=== PATIENT | male | born 1940 | race Caucasian/White ===

== ENCOUNTER 2017-01-11 13:33 | Emergency (ER) | payer OTHER, MEDICARE ==
[~2017-01-11] VITALS: Ht 170.2 cm; Wt 70.5 kg
[~2017-01-11 13:33] MED LIST: AMLOD/BENAZP1 CA2; AMLODIPINE5 MG PO; AMOXICILLIN/CL875 MG PO; ASPIRIN LOW81 M1 PO; AZULFIDINE500 MG; BENAZEPRIL20 M1 PO; CARVEDILOL25 MG PO; CARVEDILOL6.25 MG PO; CHLORTHALIDONE50 MG PO; DEMADEX10 MG; DOXYCYC MONO100 M2 PO; HYDROCHLOROT25 MG PO; IPRATROPIU0.5 MG/3 M IN; LANTUS100 MG/ML SC; LEVOTHYROXIN100 MC1 PO; LEVOTHYROXIN25 MC1; LISINOP/HCTZ1 TA1 PO; METFORMIN500 MG PO; MICRO-K10 ME1 PO; MIRALAX3350 N1; OMEPRAZOLE20 M1 PO; PREDNISONE10 MG PO; PRILOSEC20 MG; PRILOSEC20 MG/CAP PO; PROSCAR5 MG PO; SULFASALAZIN500 MG PO; ULTRAM50 M1 PO
[2017-01-11 15:23] LABS: HEMATOCRIT 39.1 % (39.0-50.0); HEMOGLOBIN 12.4 g/dl (14.0-18.0); IMMATURE GRANULOCYTES 0.6 % (0.0-1.0); MEAN CELL VOLUME 88.9 fL CALC (80.0-100.0); MEAN CORPUSCULAR HGB 28.2 pG CALC (26.0-32.0); MEAN CORPUSCULAR HGB CONC 31.7 g/L CALC (32.0-36.0); NEUT# 10.95 thou/uL (1.82-7.42); RED BLOOD COUNT 4.4 mill/uL (4.70-6.10); RED CELL DISTRI WIDTH 14.3 % (11.5-15.5)
[2017-01-11 15:48] LABS: BILIRUBIN, TOTAL 0.5 mg/dL (0.0-1.4); CALCIUM 9.7 mg/dL (8.4-10.2); CREATININE 1.4 mg/dL (0.7-1.3); POTASSIUM 3.5 mmol/l (3.5-5.1); TOTAL PROTEIN 7.3 g/dL (6.3-8.2)
[2017-01-11 17:25] VITALS: BP 170/71
[2017-01-11 18:19] LABS: URINE BILIRUBIN - DIPSTICK NEGATIVE (NEGATIVE); URINE BLOOD DIPSTICK LARGE (NEGATIVE); URINE CLARITY CLEAR; URINE COLOR YELLOW; URINE GLUCOSE - DIPSTICK NEGATIVE (NEGATIVE); URINE KETONE NEGATIVE (NEGATIVE); URINE LEUK ESTERASE NEGATIVE (Negative); URINE NITRITE - DIPSTICK NEGATIVE (Negative); URINE PROTEIN - DIPSTICK 100 mg/dL (NEG-TRACE); URINE UROBILINOGEN - DIPSTICK 0.2 E.U./dL (0.2)
[2017-01-11 18:23] LABS: URINE RBC TNTC RBC/hpf (0-5); URINE SQUAMOUS EPITHELIAL CELL FEW EPI/hpf (0-FEW)
== END 2017-01-11 17:11 | disposition short-term general hospital (02) | DRG 552 ==
LOC: ED 13:33
PROVIDERS: Emergency Medicine
DX: S12.600A Unspecified displaced fracture of seventh cervical vertebra, initial encounter for closed fracture (principal); S50.811A Abrasion of right forearm, initial encounter; S60.511A Abrasion of right hand, initial encounter; S40.012A Contusion of left shoulder, initial encounter; R07.89 Other chest pain; E11.9 Type 2 diabetes mellitus without complications; I10 Essential (primary) hypertension; I25.10 Atherosclerotic heart disease of native coronary artery without angina pectoris; M19.90 Unspecified osteoarthritis, unspecified site; V48.5XXA Car driver injured in noncollision transport accident in traffic accident, initial encounter

== ENCOUNTER 2018-11-29 10:29 | Inpatient (IN) | payer OTHER, MEDICARE ==
[~2018-11-29] VITALS: Ht 170.2 cm; Wt 63.0 kg
[~2018-11-29 10:29] MED LIST changes: +AMLODIPINE BESY10 MG PO; -LEVOTHYROXIN100 MC1 PO; +LEVOTHYROXIN125 MC1 PO
--- NOTE | 2018-11-29 10:35 | NUR ---
PT TO ROOM VIA WHEELCHAIR
--- NOTE | 2018-11-29 10:40 | NUR ---
O2 APPLIED AT 2L VIA NC FOR SATS 88-90 %
--- NOTE | 2018-11-29 11:15 | NUR ---
PT RESTING ON STERCTHER OCCASIONAL COUGH NOTED, NO OTHER S/S OF DISTRESS, VS STABLE AND AT BEDSIDE, PT HARD OF HEARING BUT ABLE TO COMMUNICATE WITH LOUD VOICE, CALL [facility] WITHIN REACH.
[2018-11-29 11:46] LABS: HEMATOCRIT 38.1 % (39.0-50.0); HEMOGLOBIN 11.7 g/dl (14.0-18.0); IMMATURE GRANULOCYTES 0.4 % (0.0-5.0); MEAN CORPUSCULAR HGB 29.8 pG CALC (26.0-32.0); MEAN CORPUSCULAR HGB CONC 30.7 g/L CALC (32.0-36.0); NEUT# 7.07 thou/uL (1.82-7.42); RED BLOOD COUNT 3.92 mill/uL (4.70-6.10); RED CELL DISTRI WIDTH 14.5 % (11.5-15.5)
[2018-11-29 11:47] LABS: MEAN CELL VOLUME 97.2 fL CALC (80.0-100.0)
[2018-11-29 12:01] LABS: ALBUMIN 4.2 g/dL (3.2-5.0); ALKALINE PHOSPHATASE 89 u/l (38-126); BILIRUBIN, TOTAL 0.4 mg/dL (0.0-1.4); BUN 20 mg/dL (8-23); BUN/CREATININE RATIO 16 (12-20 (CALC)); CARBON DIOXIDE 30 mmol/l (22-30); CHLORIDE 101 mmol/l (95-108); CREATININE 1.2 mg/dL (0.7-1.3); GFR 59 ML/MIN (>=60 (CALC)); GFR FOR AFR.AMER. > 60 ML/MIN (>=60 (CALC)); SODIUM 142 mmol/l (137-146); TOTAL PROTEIN 7.6 g/dL (6.3-8.2)
[2018-11-29 12:04] LABS: ANION GAP 16 (6-22 (CALC)); POTASSIUM 4.6 mmol/l (3.5-5.1); SGOT/AST 20 u/l (19-48)
[2018-11-29 12:09] LABS: MYOGLOBIN 72 ng/mL (0 - 121)
--- NOTE | 2018-11-29 12:15 | NUR ---
PT RESTING IV STARTED LAB WORK OBTAINED AND PT AWARE OF PLANNED ADMISSION, TOLERATING IV ABT W/O INCIDENT, REMAINS AT BEDSIDE AND CALL [facility] WITHIN REACH
--- NOTE | 2018-11-29 13:10 | NUR ---
PT RESTING ON STERCTHER, REMAINS AT BEDSIDE TOLERATING O2 AT 2L WITH SATS MAINTAINED IN THE 96-98% RANGE, ON ROOM AIR AT ARRIVAL SATS 88-90% WITH NO APPARENT DISTRESS.
--- NOTE | 2018-11-29 13:32 | NUR ---
PT CAME FROM OR VIA BED. REPORT RECEIVED. PT IS ALERT. O2 AT 2L VIA. IVF INFUSING WELL. LEFT ARM IN SLING AND ICE PACK IN PLACE. CALL LIGHT IN REACH.
[2018-11-29] MEDS ORDERED: BENAZEPRIL40 M1 PO (13:38)
[2018-11-29] MEDS ORDERED: CHLORTHALID50 MG PO (13:39)
[2018-11-29] MEDS ORDERED: SPIRONOLACTONE25 MG PO (13:39)
[2018-11-29] MEDS ORDERED: FERR SULFATE325 MG PO (13:39)
[2018-11-29] MEDS ORDERED: MULTI VIT PO (13:40)
--- NOTE | 2018-11-29 14:15 | NUR ---
PT RESTING ON STRETCHER, OFFERS NO NEW COMPLAITNS, REMAINS AT BEDSIDE
--- NOTE | 2018-11-29 14:50 | NUR ---
ORDERED LUNCH FOR PT RELATED TO C/O HUNGRY,
--- NOTE | 2018-11-29 15:27 | NUR ---
REPORT CALLED TO AARON DAVENPORT ON MED SURG.
[2018-11-29 15:47] VITALS: BP 153/67
--- NOTE | 2018-11-29 15:50 | NUR ---
PT TRASNPORTED TO MED SURG VIA WHEELCHAIR, AT SIDE AND ALL BELONGINGS WITH PT. WEIGHT OBTAINED OPN STANDING SCALE ON ARRIVAL 67.2 KG
--- NOTE | 2018-11-29 17:02 | NUR ---
PT HAD COME FROM ER VIA WHEELCHAIR. ASSESSMENT DONE. PT IS A&O X3 BUT FORGETFUL AT TIMES. PT IS HARD OF HEARING. PT DENIES PAIN. 20 RAC THAT APPEARS HEALTHY. SKIN INTACT. SAFETY PRECAUTIONS REINFORCED AND CALL LIGHT IN REACH.
--- NOTE | 2018-11-29 19:50 | NUR ---
PT AWAKE RESTING IN BED. O2 N/C ON AT 2L. PT IS ALERT AND ORIENTED X3. RESP EVEN AND UNLABORED. LUNGS REVEAL COARSE BREATH SOUNDS. ABD SOFT WITH BOWEL SOUNDS PRESENT. NO LOWER EXT EDEMA NOTED. PEDAL PULSES PALPATED BILAT. HEPLOCK PATENT. PT OFFERS NO COMPLAINTS. CALL [facility] WITHIN REACH.
[2018-11-29 19:55] VITALS: BP 149/79
--- NOTE | 2018-11-30 00:10 | NUR ---
RESTING IN BED. RESP EVEN AND UNLABORED. NO DISTRESS NOTED. O2 N/C ON AT 2L. HEPLOCK PATENT. OFFERS NO COMPLAINTS. FREQUENT ROUNDS MADE. CALL [facility] WITHIN REACH.
--- NOTE | 2018-11-30 04:02 | NUR ---
RESTING IN BED WITH EYES CLOSED. ASSESSMENT UNCHANGED. RESP EVEN AND UNLABORED. HEPLOCK PATENT. FREQUENT ROUNDS MADE. CALL [facility] WITHIN REACH.
[2018-11-30 04:32] VITALS: BP 124/73
[2018-11-30 05:06] LABS: HEMOGLOBIN 10.7 g/dl (14.0-18.0); MEAN CELL VOLUME 98.3 fL CALC (80.0-100.0); MEAN CORPUSCULAR HGB 30.1 pG CALC (26.0-32.0); MEAN CORPUSCULAR HGB CONC 30.6 g/L CALC (32.0-36.0); RED BLOOD COUNT 3.56 mill/uL (4.70-6.10); RED CELL DISTRI WIDTH 14.3 % (11.5-15.5)
[2018-11-30 05:25] LABS: ANION GAP 14 (6-22 (CALC)); BUN 21 mg/dL (8-23); BUN/CREATININE RATIO 20 (12-20 (CALC)); CARBON DIOXIDE 29 mmol/l (22-30); CHLORIDE 102 mmol/l (95-108); CREATININE 1.1 mg/dL (0.7-1.3); GFR > 60 ML/MIN (>=60 (CALC)); GFR FOR AFR.AMER. > 60 ML/MIN (>=60 (CALC)); POTASSIUM 4.5 mmol/l (3.5-5.1); SODIUM 140 mmol/l (137-146)
[2018-11-30 07:33] VITALS: BP 143/69
--- NOTE | 2018-11-30 08:01 | NUR ---
ASSESSMENT DONE. PT IS A&O X3. PT IS HARD OF HEARING. PT DENIES PAIN AT THIS TIME. 02 AT 2L VIA NC. PT DENIES NEEDS AT THIS TIME. CALL LIGHT IN REACH.
--- NOTE | 2018-11-30 12:05 | NUR ---
PT IS EATING HIS LUNCH WITH NO S/S OF DISTRESS NOTED. PT DENIES ANY NEEDS AT THIS TIME. CALL LIGHT IN REACH.
--- NOTE | 2018-11-30 14:24 | NUR ---
PT STATED IV SITE HURTING DUE ZITHROMAX. ALSO, FELT TINGLING IN ARM. NO REDNESS OR WARM NOTED. SLOW THE IV. PT DENIES ANY OTHER NEEDS AT THIS TIME. CALL LIGHT IN REACH.
[2018-11-30 15:10] VITALS: BP 118/63
--- NOTE | 2018-11-30 15:20 | NUR ---
PT IS RESTING IN BED. PT DENIES PAIN IN RIGHT ARM AND DENIES TINGLING . PT DENIES NEEDS AT THIS TIME. CALL LIGHT IN REACH.
--- NOTE | 2018-11-30 19:25 | NUR ---
PT IN BED AWAKE, [place], BUT LOCX3. PT DENIES ANY NEEDS AT THIS TIME. CALL LIGHT AT SIDE.
[2018-11-30 20:30] VITALS: BP 148/72
--- NOTE | 2018-11-30 21:53 | NUR ---
PT MEDICATED ORDERS PROVIDE. DENIES ANY OTHER NEEDS AT THIS TIME. CALL LIGHT AT SIDE.
[2018-12-01 04:49] VITALS: BP 138/67
--- NOTE | 2018-12-01 07:00 | NUR ---
SHIFT CHANGE REPORT, PT AWAKE ALERT AND ORIENTED RESTING IN BED, O2 @ 2L VIA NC IN PLACE, ALL NEEDS ADDRESSED, CALL [facility] IN REACH.
[2018-12-01 09:08] VITALS: BP 178/79
--- NOTE | 2018-12-01 09:32 | NUR ---
DR HAINES ROUNDED, DISCUSSED PLAN OF CARE TO HAVE MORE IMAGING TESTS AND MEDICATIONS, ALSO O2 WALKING TEST WHICH PT FAILED WHEN HE AMBULATED FROM BR WITH O2 LEVEL @ 83%. PT STATED UNDERSTANDING OF PLAN.
--- NOTE | 2018-12-01 12:00 | NUR ---
DOWN FOR CT AND RETURNED TO ROOM, SPOSE AT BEDSIDE, ALL NEEDS MET.
--- NOTE | 2018-12-01 16:00 | NUR ---
SLEEPING AT THIS TIME, APPEARS CONFORTABLE, NO SIGN DISCOMFORT, O2 @ 2L VIA NC IN PLACE.
[2018-12-01 16:24] VITALS: BP 148/67
[2018-12-01 18:51] VITALS: BP 149/74
--- NOTE | 2018-12-01 19:42 | NUR ---
PATIENT RESTING IN BED WITH O2 VIA NASAL CANNULA IN PLACE AT 2LPM. PATIENT IS AWAKE ALERT AND ORIENTEDX3. YANKTON. SALINE LOCK TO RIGHT AC INTACT AND IS HEALTHY AT THIS TIME. PATIENT DENIES ANY PAIN AT THIS TIME. SENIES ANY DIFFICULTY WITH URINATION AND STATES THAT HE HAD BM TODAY. NO PERIPHERAL EDEMA NOTED AND PEDAL PULSES ARE PALPABLE. SAFETY PRECAUTIONS REINFORCED. CALL LIGHT IN REACH. WILL CONT TO MONITOR.
--- NOTE | 2018-12-02 | NUR ---
PATIENT RESTING IN BED AT THIS TIME WITH O2 VIA NASAL CANNUAL IN PLACE AND EYES CLOSED. RESP ARE EVEN AND UNLABORED AT THIS ITME. CALL LIGHT IN REACH. WILL CONT TO MONITOR.
[2018-12-02 04:00] VITALS: BP 140/66
--- NOTE | 2018-12-02 04:39 | NUR ---
PATIENT RESTING IN BED WITH HOB ELEVATED AND O2 VIA NASAL CANNULA IN PLACE. RESP ARE EVEN AND UNLABORED. CALL LIGHT IN REACH. WILL CONT TO MONITOR.
[2018-12-02 05:15] LABS: HEMATOCRIT 33.7 % (39.0-50.0); HEMOGLOBIN 10.5 g/dl (14.0-18.0); MEAN CORPUSCULAR HGB 29.9 pG CALC (26.0-32.0); MEAN CORPUSCULAR HGB CONC 31.2 g/L CALC (32.0-36.0); RED BLOOD COUNT 3.51 mill/uL (4.70-6.10); RED CELL DISTRI WIDTH 14.1 % (11.5-15.5)
[2018-12-02 05:27] LABS: ANION GAP 13 (6-22 (CALC)); BUN 23 mg/dL (8-23); BUN/CREATININE RATIO 21 (12-20 (CALC)); CARBON DIOXIDE 29 mmol/l (22-30); CHLORIDE 103 mmol/l (95-108); CREATININE 1.1 mg/dL (0.7-1.3); GFR > 60 ML/MIN (>=60 (CALC)); GFR FOR AFR.AMER. > 60 ML/MIN (>=60 (CALC)); POTASSIUM 4.8 mmol/l (3.5-5.1); SODIUM 140 mmol/l (137-146)
--- NOTE | 2018-12-02 06:55 | NUR ---
PT REPORT RECIEVED FROM AARON PATTERSON. PT RESTING. NO S/S OF DISTRESS. CALL LIGHT IN REACH. WILL CONTINUE TO MONITOR.
[2018-12-02 07:53] VITALS: BP 172/75
--- NOTE | 2018-12-02 07:53 | NUR ---
PT A/O X3. RESP SHALLOW. LUNG SOUNDS DIMINISHED. PRODUCTIVE COUGH NOTED; THICK YELLOW SPUTUM. O2 @2L AT BEDSIDE. BOWEL SOUNDS ACTIVE X4. STRONG RADIAL AND PEDAL PULSES. #20 RAC SL. FLUSHED AND PATENT. SITE APPEARS HEALTHY. SKIN INTACT. PT DENIES ANY PAIN OR NEEDS. POC DISCUSSED. SAFETY PRECAUTIONS IN PLACE. CALL LIGHT IN REACH. WILL CONTINUE TO MONITOR.
[2018-12-02 09:14] VITALS: BP 161/73
[2018-12-02] MEDS ORDERED: PREDNISONE10 MG PO (09:18)
[2018-12-02] MEDS ORDERED: LEVAQUIN750 MG PO (09:18)
--- NOTE | 2018-12-02 10:30 | NUR ---
WALK TEST COMPLETED ON PT. O2 W/O OXYGEN WHILE WALKING SUSTAINED 91%. PT DENIES ANY SOB. PT AMBULATES W/ STEADY GAIT.
--- NOTE | 2018-12-02 13:48 | NUR ---
Discharge instructions given. Patient verbalizes understanding of same. Discharged in stable condition via Wheelchair to Home with family. All belongings sent with pt.
== END 2018-12-02 13:48 | disposition home or self-care (01) | DRG 193 ==
LOC: ED 10:29 → ED-I 12:25 → ED 12:41 → MS2 12:42
PROVIDERS: Emergency Medicine; ADMIT Internal Medicine; ATTEND Internal Medicine
DX: J18.9 Pneumonia, unspecified organism (principal); J96.21 Acute and chronic respiratory failure with hypoxia; J44.0 Chronic obstructive pulmonary disease with (acute) lower respiratory infection; J44.1 Chronic obstructive pulmonary disease with (acute) exacerbation; I10 Essential (primary) hypertension; E11.9 Type 2 diabetes mellitus without complications; I25.10 Atherosclerotic heart disease of native coronary artery without angina pectoris; E03.9 Hypothyroidism, unspecified; K21.9 Gastro-esophageal reflux disease without esophagitis; Z87.891 Personal history of nicotine dependence
CPT/HCPCS: J1650

== ENCOUNTER 2019-06-05 | Emergency (ER) | payer MEDICARE, OTHER ==
[~2019-06-05] MED LIST changes: +BENAZEPRIL40 M1 PO; +CHLORTHALID50 MG PO; +FERR SULFATE325 MG PO; +LEVAQUIN750 MG PO; +MULTI VIT PO; +SPIRONOLACTONE25 MG PO
[2019-06-05 16:41] LABS: HEMATOCRIT 36.1 % (39.0-50.0); IMMATURE GRANULOCYTES 0.3 % (0.0-5.0); MEAN CORPUSCULAR HGB 27.4 pG CALC (26.0-32.0); MEAN CORPUSCULAR HGB CONC 30.5 g/dL CAL (32.0-36.0); NEUT# 3.93 thou/uL (1.82-7.42); RED BLOOD COUNT 4.01 mill/uL (4.70-6.10); RED CELL DISTRI WIDTH 15.9 % (11.5-15.5)
[2019-06-05] MEDS ORDERED: LUTEIN1 CAP PO (16:50)
[2019-06-05 17:16] LABS: ALBUMIN 3.8 g/dL (3.2-5.0); ALKALINE PHOSPHATASE 80 u/l (38-126); ANION GAP 13 (6-22 (CALC)); BILIRUBIN, TOTAL 0.3 mg/dL (0.0-1.4); BUN 33 mg/dL (8-23); BUN/CREATININE RATIO 26 (12-20 (CALC)); CARBON DIOXIDE 25 mmol/l (22-30); CHLORIDE 105 mmol/l (95-108); CREATININE 1.3 mg/dL (0.7-1.3); GFR 54 ML/MIN (>=60 (CALC)); GFR FOR AFR.AMER. > 60 ML/MIN (>=60 (CALC)); POTASSIUM 4.2 mmol/l (3.5-5.1); SGOT/AST 17 u/l (19-48); SODIUM 139 mmol/l (137-146)
== END 2019-06-05 18:16 | disposition home or self-care (01) | DRG 93 ==
PROVIDERS: Family Medicine
DX: R20.2 Paresthesia of skin (principal); E11.9 Type 2 diabetes mellitus without complications; I25.10 Atherosclerotic heart disease of native coronary artery without angina pectoris; I10 Essential (primary) hypertension

== ENCOUNTER 2020-02-28 07:49 | Emergency (ER) | payer OTHER, MEDICARE ==
[~2020-02-28] VITALS: Ht 170.2 cm; Wt 70.5 kg
[~2020-02-28 07:49] MED LIST changes: +LUTEIN1 CAP PO
[2020-02-28] MEDS ORDERED: CARVEDILOL25 MG PO (08:03)
[2020-02-28] MEDS ORDERED: AMLOD/BENAZP1 CA5 PO (08:04)
[2020-02-28] MEDS ORDERED: ALDACTAZID1 PO (08:05)
[2020-02-28] MEDS ORDERED: SULFASALAZIN500 M1 PO (08:07)
[2020-02-28] MEDS ORDERED: FINASTERIDE5 MG PO (08:08)
[2020-02-28] MEDS ORDERED: ADLT ASA LOW81 MG PO (08:08)
[2020-02-28] MEDS ORDERED: PREDNISONE5 MG PO ×2 (08:15→08:16)
[2020-02-28] MEDS ORDERED: FERR SULFATE325 MG PO (08:16)
[2020-02-28] MEDS ORDERED: LEVOTHYROXIN125 MCG PO (08:16)
[2020-02-28] MEDS ORDERED: PRESERVISION PO (08:17)
[2020-02-28] MEDS ORDERED: FIBER DIET (08:17)
[2020-02-28] MEDS ORDERED: TORADOL PO ×2 (09:31→10:01)
[2020-02-28 09:43] VITALS: BP 162/70
== END 2020-02-28 09:50 | disposition home or self-care (01) | DRG 563 ==
LOC: ED 07:49
DX: S46.912A Strain of unspecified muscle, fascia and tendon at shoulder and upper arm level, left arm, initial encounter (principal); S63.502A Unspecified sprain of left wrist, initial encounter; S63.92XA Sprain of unspecified part of left wrist and hand, initial encounter; I10 Essential (primary) hypertension; E11.9 Type 2 diabetes mellitus without complications; I25.10 Atherosclerotic heart disease of native coronary artery without angina pectoris; W01.0XXA Fall on same level from slipping, tripping and stumbling without subsequent striking against object, initial encounter; Y93.89 Activity, other specified; Y92.009 Unspecified place in unspecified non-institutional (private) residence as the place of occurrence of the external cause

== ENCOUNTER 2020-12-12 17:32 | Emergency (ER) | payer MEDICARE ==
[~2020-12-12 17:32] MED LIST changes: +ADLT ASA LOW81 MG PO; +ALDACTAZID1 PO; +AMLOD/BENAZP1 CA5 PO; +FIBER DIET; +FINASTERIDE5 MG PO; +LEVOTHYROXIN125 MCG PO; +PREDNISONE5 MG PO; +PRESERVISION PO; +SULFASALAZIN500 M1 PO; +TORADOL PO
== END 2020-12-12 19:07 | disposition left against medical advice (07) ==
LOC: ED 17:32 → LWOBS 19:07
DX: Z53.21 Procedure and treatment not carried out due to patient leaving prior to being seen by health care provider (principal)

== ENCOUNTER 2021-04-30 08:50 | Observation (INO) | payer MEDICARE ==
[~2021-04-30] VITALS: Ht 170.2 cm; Wt 68.0 kg
--- NOTE | 2021-04-30 09:01 | NUR ---
PT TO ROOM VIA WC ASSISTED W/TRANSFER TO [facility] [place].
[2021-04-30 10:02] LABS: HEMATOCRIT 38.5 % (39.0-50.0); HEMOGLOBIN 11.7 g/dl (14.0-18.0); IMMATURE GRANULOCYTES 0.4 % (0.0-5.0); MEAN CELL VOLUME 87.9 fL CALC (80.0-100.0); MEAN CORPUSCULAR HGB 26.7 pG CALC (26.0-32.0); MEAN CORPUSCULAR HGB CONC 30.4 g/dL CAL (32.0-36.0); NEUT# 9.66 thou/uL (1.82-7.42); RED BLOOD COUNT 4.38 mill/uL (4.70-6.10); RED CELL DISTRI WIDTH 16.2 % (11.5-15.5)
[2021-04-30 10:20] LABS: ALBUMIN 3.9 g/dL (3.2-5.0); ALKALINE PHOSPHATASE 88 u/l (38-126); ANION GAP 16 (6-22 (CALC)); BILIRUBIN, TOTAL 0.3 mg/dL (0.0-1.4); BUN 30 mg/dL (8-23); BUN/CREATININE RATIO 26 (12-20 (CALC)); CARBON DIOXIDE 27 mmol/l (22-30); CHLORIDE 102 mmol/l (95-108); CREATININE 1.1 mg/dL (0.7-1.3); GFR > 60 ML/MIN (>=60 (CALC)); GFR FOR AFR.AMER. > 60 ML/MIN (>=60 (CALC)); POTASSIUM 4.2 mmol/l (3.5-5.1); SGOT/AST 19 u/l (19-48); SODIUM 140 mmol/l (137-146); TOTAL PROTEIN 7.4 g/dL (6.3-8.2)
[2021-04-30 10:26] LABS: D-DIMER 1.54 mg/L (0.19-0.60)
[2021-04-30 10:28] LABS: PROTHROMBIN TIME 10.8 SECONDS (9.0-12.5)
--- NOTE | 2021-04-30 13:20 | NUR ---
PT RESTING, VSS, NO DISTRESS AND PAIN WELL MANAGED. DENIES ANY NEEDS.
[2021-04-30 13:21] LABS: URINE BILIRUBIN - DIPSTICK NEGATIVE (NEGATIVE); URINE BLOOD DIPSTICK TRACE-INTACT (NEGATIVE); URINE COLOR YELLOW; URINE GLUCOSE - DIPSTICK NEGATIVE (NEGATIVE); URINE KETONE NEGATIVE (NEGATIVE); URINE LEUK ESTERASE NEGATIVE (NEGATIVE); URINE PH 5.5 (4.5-8.0); URINE PROTEIN - DIPSTICK NEGATIVE (NEG-TRACE); URINE SPECIFIC GRAVITY 1.015; URINE UROBILINOGEN - DIPSTICK 0.2 E.U./dL (0.2)
[2021-04-30 13:36] LABS: URINE NITRITE - DIPSTICK NEGATIVE (Negative)
--- NOTE | 2021-04-30 14:19 | NUR ---
PT ASLEEP, AWAKENS TO VOICE. PT REPORTS PAIN IMPROVED AND "COMES AND GOES." RATES AT 3/10. BREATHING UNLABORED, VSS, SKIN PWD. WILL CONTINUE TO MONITOR.
--- NOTE | 2021-04-30 14:30 | NUR ---
PT TO BE ADMITTED TO ROOM 289, CALL PLACED TO GIVE REPORT, [facility] WILL CALL WHEN AVAILABLE TO TAKE REPORT.
--- NOTE | 2021-04-30 15:00 | NUR ---
PT RESTING WITH EYES CLOSED, VSS. AWAITING ADMISSION. PT STABLE.
[2021-04-30] MEDS ORDERED: FERROUS SULF325 M2 PO (15:23)
[2021-04-30] MEDS ORDERED: MECLIZINE12.5 M1 PO (15:24)
[2021-04-30] MEDS ORDERED: PRESERVISION AREDS 2 PO (15:25)
[2021-04-30] MEDS ORDERED: COUGHTAB200 MG PO (15:26)
[2021-04-30] MEDS ORDERED: CLARITIN10 M1 PO (15:29)
--- NOTE | 2021-04-30 15:43 | NUR ---
SBAR REPORT GIVEN TO [facility] MED/SURG
--- NOTE | 2021-04-30 15:50 | NUR ---
PT TAKEN TO MED/SURG VIA STRETCHER CONNECTED TO TELE. PT IN STABLE CONDITION AT TIME OF ADMISSION. PT'S PAPERWORK HANDED OFF TO STAFF.
--- NOTE | 2021-04-30 16:00 | NUR ---
PATIENT TO ROOM VIA ER STRETCHER ACCOMPANIED BY ER NURSE. PATIENT IS ALERT AND ORIENTED X3. ADMISSION ASSESSMENT COMPLETED AT THIS TIME. IV PATENT X1. ORIENTED PATIENT TO ROOM AND UNIT. [facility] WILL CONTINUE TO MONITOR.
[2021-04-30 19:00] VITALS: BP 138/60
--- NOTE | 2021-04-30 19:45 | NUR ---
PATIENT ALERT, VERY HARD OF HEARING. ATTEMPTS TO GET OUT OF BED BY HIMSELF TO WALK OVER TO SINK TO PUT HEARING AIDS IN EACH TIME TO COMMUNICATE WITH WHOEVER COMES IN THE ROOM. ASSESSMENT COMPLETE. SHORTNESS OF BREATH ON EXERTION. PRODUCTIVE COUGH PRESENT. SPUTUM OBSERVED IN CUP TO BE SENT TO LAB FOR CULTURE. SPUTUM APPEARS A BROWN COLOR. OXYGEN ON VIA NC AT 3L. BED REMAINS IN LOW POSITION. CALL LIGHT AND BELONGINGS REMAIN IN REACH.
--- NOTE | 2021-04-30 21:05 | NUR ---
CALLED RESPIRATORY TO COME ASSESS PATIENT AND BREATHING TREATMENT IF ORDERS ALLOW.
[2021-05-01] VITALS: BP 129/61
--- NOTE | 2021-05-01 01:00 | NUR ---
PATIENT RESTING IN BED. NO COMPLAINTS VOICED. NO DISTRESS NOTED AT THIS TIME. REMAINS ON O2 AT 4L NC. NO COUGHING OBSERVED AT THIS TIME. CALL LIGHT AND BELONGINGS REMAIN IN REACH.
--- NOTE | 2021-05-01 03:38 | NUR ---
CALLED RESPIRATORY FOR PRN BREATHING TX FOR PATIENT.
[2021-05-01 04:00] VITALS: BP 118/58
--- NOTE | 2021-05-01 04:15 | NUR ---
PATIENT RESTING IN BED. NO SHORTNESS OF BREATH OBSERVED AT THIS TIME. COMPLAINS AT TIMES OF PAIN TO RIGHT SIDE OF RIB/CHEST AREA SAME WHERE PAIN WAS ON ADMISSION. NO COMPLAINTS VOICED PRESENTLY. PATIENT KEEPS REMOVING HEARING AID FROM LEFT EAR AND PUTTING IT BACK IN EACH TIME SOMEONE ENTERS THE ROOM. CALL LIGHT AND BELONGINGS REMAIN IN REACH.
[2021-05-01 05:36] LABS: HEMATOCRIT 34.5 % (39.0-50.0); HEMOGLOBIN 10.4 g/dl (14.0-18.0); MEAN CELL VOLUME 88.2 fL CALC (80.0-100.0); MEAN CORPUSCULAR HGB 26.6 pG CALC (26.0-32.0); MEAN CORPUSCULAR HGB CONC 30.1 g/dL CAL (32.0-36.0); RED BLOOD COUNT 3.91 mill/uL (4.70-6.10); RED CELL DISTRI WIDTH 16.6 % (11.5-15.5)
[2021-05-01 06:03] LABS: CREATININE 1.5 mg/dL (0.7-1.3); POTASSIUM 4.2 mmol/l (3.5-5.1)
--- NOTE | 2021-05-01 07:05 | NUR ---
REPORT FROM PACO WALKER. ASSUMED PT CARE.
[2021-05-01 07:31] VITALS: BP 118/66
[2021-05-01 10:45] VITALS: BP 126/53
--- NOTE | 2021-05-01 11:21 | NUR ---
PHYSICIAN AT BEDSIDE.
[2021-05-01 15:44] VITALS: BP 129/61; BP 170/67
[2021-05-01 18:58] VITALS: BP 144/58
--- NOTE | 2021-05-01 20:00 | NUR ---
PATIENT RESTING IN BED AT THIS TIME-AWAKE ALERT AND ORIENTED. PATIENT VERY ROBIN[place] AND ALSO VISUALLY IMPAIRED. TELE MONITOR IN PLACE READING 95. IVF NS PATENT AND INFUSING VIA LAC AT 100CC/HR. SITE IS HEALTHY AT THIS TIME. O2 VIA NASAL CANNULA IN PLACE WITH O2 SAT OF 90'S. VOIDING QS MILEY URINE IN THE URINAL. SAFETY PRECAUTIONS REINFORCED. BED ALARM IN PLACE. CALL LIGHT IN REACH. WILL CONT TO MONITOR.
--- NOTE | 2021-05-02 | NUR ---
PATIENT MEDICATED WITH ROBITUSSIN AC ORDERED. RESTING IN BED AT THIS TIME WITH O2 VIA NASAL CANNULA IN PLACE. TELE MONITOR IN PLACE. IVF PATENT AND INFUSING VIA LAC SITE. BED ALARM IN PLACE. CALL LIGHT IN REACH. WILL CONT TO MONITOR.
[2021-05-02 01:19] VITALS: BP 157/60
[2021-05-02 04:52] VITALS: BP 157/73
--- NOTE | 2021-05-02 05:17 | NUR ---
PATIENT RESTING IN BED-C/O PAIN TO LAC IV SITE. SITE WAS D/C'ED WITH CATH INTACT. NEW IV SITE STARTED TO RIGHT FOREARM-#22 WITH GOOD BLOOD RETURN. IVF NS PATENT AND INFUSING AT 100CC/HR. O2 VIA NASAL CANNULA IN PLACE. TELE MONITOR IN PLACE-LAST READING WAS ST-105. BED ALARM IN PLACE FOR PATIENT SAFETY. CALL LIGHT IN REACH. WILL CONT TO MONITOR.
[2021-05-02 05:52] LABS: MEAN CORPUSCULAR HGB 26.7 pG CALC (26.0-32.0); MEAN CORPUSCULAR HGB CONC 30.3 g/dL CAL (32.0-36.0); RED BLOOD COUNT 3.75 mill/uL (4.70-6.10); RED CELL DISTRI WIDTH 16.2 % (11.5-15.5)
[2021-05-02 06:16] LABS: ANION GAP 13 (6-22 (CALC)); BUN 28 mg/dL (8-23); BUN/CREATININE RATIO 25 (12-20 (CALC)); CARBON DIOXIDE 23 mmol/l (22-30); CHLORIDE 105 mmol/l (95-108); CREATININE 1.1 mg/dL (0.7-1.3); GFR > 60 ML/MIN (>=60 (CALC)); GFR FOR AFR.AMER. > 60 ML/MIN (>=60 (CALC)); POTASSIUM 3.9 mmol/l (3.5-5.1); SODIUM 138 mmol/l (137-146)
[2021-05-02 07:10] VITALS: BP 149/68
--- NOTE | 2021-05-02 07:11 | NUR ---
REPORT REC FROM Tisha HORN RN
--- NOTE | 2021-05-02 08:10 | NUR ---
PT SITTING IN BED. A&O . COCHELAR IMPLANT APPLIED. PT [place]; THICK PRODUCTIVE COUGH NOTED. COARSE BREATH SOUNDS THROUGHOUT ALL LUNG BASES. ACTIVE BOWEL SOUNDS X4 QUADRANTS. IV HEALTHY AND PATENT WITH IVF INFUSING PER MAR ORDERS. PROGRAM SERVICES PLANNER IN PLACE. ASSESSMENT COMPLETED. BED ALARM IN PLACE FOR SAFETY.
[2021-05-02 08:51] LABS: URINE BILIRUBIN - DIPSTICK SMALL (NEGATIVE); URINE BLOOD DIPSTICK NEGATIVE (NEGATIVE); URINE GLUCOSE - DIPSTICK NEGATIVE (NEGATIVE); URINE KETONE TRACE mg/dL (NEGATIVE); URINE LEUK ESTERASE NEGATIVE (NEGATIVE); URINE NITRITE - DIPSTICK POSITIVE (Negative); URINE PROTEIN - DIPSTICK NEGATIVE (NEG-TRACE); URINE SPECIFIC GRAVITY <=1.005; URINE UROBILINOGEN - DIPSTICK 0.2 E.U./dL (0.2)
[2021-05-02 08:52] LABS: URINE BACTERIA FEW hpf; URINE COLOR BROWN; URINE RBC 0-2 RBC/hpf (0-5); URINE WBC 0-2 WBC/hpf (0-5)
--- NOTE | 2021-05-02 09:59 | NUR ---
6 MIN WALK TEST COMPLETED BY Roscoe VAZQUEZ. PT 84% VIA RA; FAILED WT. RESULTS COMMUNICATED WITH MD & CM. O2 REAPPLIED.
--- NOTE | 2021-05-02 10:07 | NUR ---
AT BEDSIDE; UPDATED ON POC
--- NOTE | 2021-05-02 10:16 | NUR ---
DR BHATT AND Wojciech GUZMÁN TILE AND MARBLE INSTALLER AT BEDSIDE DISCUSSING POC
[2021-05-02 11:12] VITALS: BP 144/64
--- NOTE | 2021-05-02 14:00 | NUR ---
PT CONFUSED; PER HE HAS DEMENTIA. Wojciech GUZMÁN APRN NOTIFIED OF INCREASED AGITATION AND CONFUSION; ORDER OBTAINED FOR SEROQUEL. PT ABLE TO TAKE PO MEDICATIONS WITH NO DIFFICULTY. WANTING TO SIT IN CHAIR. ALARM CLIP APPLIED. PT TO BE CLOSELY MONITORED.
--- NOTE | 2021-05-02 15:57 | NUR ---
PT SLEEPING IN BED. NO DISTRESS NOTED. CALL LIGHT WITHIN REACH. BED ALARM IN PLACE FOR SAFETY.
--- NOTE | 2021-05-02 19:30 | NUR ---
PATIENT RESTING IN BED WITH O2 VIA NASAL CANNULA IN PLACE AT 3LPM. O2 SAT IS 94% AT THIS TIME. EYES ARE CLOSED AND RESPS ARE EVEN AND UNLABORED. TELE MONITOR IN PLACE. IVF PATENT AND INFUSING VIA RIGHT FOREARM AT 50CC/HR. SITE REMAINS HEALTHY AT THIS TIME. BED ALARM IN PLACE. CALL LIGHT IN REACH. WILL CONT TO MONITOR.
[2021-05-02 20:12] VITALS: BP 132/61
[2021-05-03] VITALS (7 sets, daily range): BP systolic 129–177; BP diastolic 71–81
--- NOTE | 2021-05-03 01:27 | NUR ---
PATIENT CONT TO REST IN BED WITH EYES CLOSED AND O2 VIA NASAL CANNULA IN PLACE. RESPS ARE EVEN AND UNLABORED AT THIS TIME. PATIENT WOKE UP FOR SHORT TIME TOOK HIS PO MEDS ORDERED THEN WENT BACK TO SLEEP. TELE MONITOR IN PLACE WITH LAST READING BEING SR-78. IVF PATENT AND INFUSING VIA RIGHT FOREARM AT 50CC/HR. SITE REMAINS HEALTHY.ED ALARM IN PLACEFOR PATIENT SAFETY. SITTER AT BEDSIDE FOR PATIENT SAFETY. CALL LIGHT IN REACH. WILL CONT TO MONITOR.
--- NOTE | 2021-05-03 04:17 | NUR ---
PATIENT CONT TO SLEEP WITH O2 VIA NASAL CANNULA IN PLACE. RESPS ARE EVEN AND UNLABORED. VS TAKEN AND RECORDED. TELE MONITOR IN PLACE WITH LAST READING BEING SR-81. IVF NS PATENT AND INFUSING VIA RIGHT FOREARM SITE AT 50CC/HR. CALL LIGHT IN REACH. BED ALARM IN PLACE FOR PATIENT SAFETY. SITTER AT BEDSIDE. WILL CONT TO MONITOR.
[2021-05-03 06:15] LABS: HEMATOCRIT 36.2 % (39.0-50.0); HEMOGLOBIN 10.6 g/dl (14.0-18.0); MEAN CELL VOLUME 88.7 fL CALC (80.0-100.0); MEAN CORPUSCULAR HGB CONC 29.3 g/dL CAL (32.0-36.0); RED BLOOD COUNT 4.08 mill/uL (4.70-6.10); RED CELL DISTRI WIDTH 16.3 % (11.5-15.5)
[2021-05-03 06:20] LABS: ANION GAP 12 (6-22 (CALC)); BUN 22 mg/dL (8-23); BUN/CREATININE RATIO 23 (12-20 (CALC)); CARBON DIOXIDE 24 mmol/l (22-30); CHLORIDE 107 mmol/l (95-108); CREATININE 0.9 mg/dL (0.7-1.3); GFR > 60 ML/MIN (>=60 (CALC)); GFR FOR AFR.AMER. > 60 ML/MIN (>=60 (CALC)); MAGNESIUM 2.3 mg/dL (1.6-2.3); POTASSIUM 4.6 mmol/l (3.5-5.1); SODIUM 138 mmol/l (137-146)
--- NOTE | 2021-05-03 08:20 | NUR ---
PT SITTING ON THE SIDE OF THE BED EATING BREAKFAST. APPEARS CALM. A&O X3. COCHELAR IMPLANT IN PLACE; PT ABLE TO RESPOND TO QUESTIONS APPROPRIATELY. COARSE/DIMINISHED BREATH SOUNDS; IMPROVEMENT COMPARED TO YESTERDAY. ACTIVE BOWEL SOUNDS X4 QUADRANTS. IV REMAINS HEALTHY AND PATENT. HIDE SHAKER IN PLACE. PT ABLE TO TAKE PO MEDICATIONS WITHOUT DIFFICULTY. ASSESSMENT COMPLETED. DISCUSSED POC. BED ALARM IN PLACE FOR SAFETY. CALL LIGHT WITHIN REACH.
--- NOTE | 2021-05-03 17:10 | NUR ---
PT SITTING IN BED. NO DISTRESS NOTED. AT BEDSIDE. CALL LIGHT WITHIN REACH.
--- NOTE | 2021-05-03 17:20 | NUR ---
PT PROVIDED WITH HOT BLACK TEA PER REQUEST. NO OTHER NEEDS AT THIS TIME. CALL LIGHT WITHIN REACH.
--- NOTE | 2021-05-03 20:00 | NUR ---
PT IN BED; A&O X2. EVEN AND UNLABORED RESPIRATIONS; DIMINISHED LUNG SOUNDS UPON AUSCULTATION. O2 @ 2L VIA NASAL CANNULA IN PLACE. TELEMERY AND BED ALARM IN PLACE. ACTIVE BOWEL SOUNDS X4 QUADRANTS. INSTRUCTED PT TO USE CALL LIGHT AND LEFT WITHIN REACH.
--- NOTE | 2021-05-03 22:15 | NUR ---
PT IS RESTLESS; UNABLE TO SLEEP. DR HAINES NOTIFIED. RECEIVED ORDER FOR SLEEP MED FROM DR. HAINES.
[2021-05-04] VITALS: BP 151/77
--- NOTE | 2021-05-04 00:30 | NUR ---
PT SLEEPING. NO DISTRESS NOTED. TELEMETRY AND BED ALARM IN PLACE. CALL LIGHT WITHIN REACH.
[2021-05-04 04:00] VITALS: BP 151/72
--- NOTE | 2021-05-04 04:00 | NUR ---
BED ALARM BEEPING; PT TRYING TO GET OUT OF BED. PT HELPED TO RESTROOM. PT PULLED OUT IV; CATHETER IS INTACT. NEW IV SITE STARTED; PT TOLERATED WELL. #22G ON RIGHT FOREARM HEALTHY AND PATENT. BED ALARM AND SAFETY PRECAUTIONS IN PLACE. CALL LIGHT WITHIN REACH.
[2021-05-04 05:59] LABS: HEMATOCRIT 31.4 % (39.0-50.0); HEMOGLOBIN 9.4 g/dl (14.0-18.0); MEAN CORPUSCULAR HGB 26.6 pG CALC (26.0-32.0); MEAN CORPUSCULAR HGB CONC 29.9 g/dL CAL (32.0-36.0); RED BLOOD COUNT 3.53 mill/uL (4.70-6.10); RED CELL DISTRI WIDTH 16.5 % (11.5-15.5)
[2021-05-04 06:53] LABS: ANION GAP 10 (6-22 (CALC)); BUN 22 mg/dL (8-23); BUN/CREATININE RATIO 24 (12-20 (CALC)); CARBON DIOXIDE 25 mmol/l (22-30); CHLORIDE 107 mmol/l (95-108); CREATININE 0.9 mg/dL (0.7-1.3); GFR > 60 ML/MIN (>=60 (CALC)); GFR FOR AFR.AMER. > 60 ML/MIN (>=60 (CALC)); POTASSIUM 4.5 mmol/l (3.5-5.1); SODIUM 138 mmol/l (137-146)
--- NOTE | 2021-05-04 08:52 | NUR ---
PT SITTING IN BED. A&O X3. NO DISTRESS NOTED. O2 VIA NC @2L IN PLAC. COARSE BREATH SOUNDS IN UPPER LOBES/DIMINSHED LOWER LOBES HEARD UPON AUSCULTATION. ACTIVE BOWEL SOUNDS X4 QUADRANTS. IS DEVICE AT BEDSIDE; PT DEMONSTRATNG PROPER USE OF DEVICE. IV HEALTHY AND PATENT. ASSESSMENT COMPLETED. DISCUSSED POC. CALL LIGHT WITHIN REACH.
[2021-05-04 08:53] VITALS: BP 150/67
[2021-05-04 11:03] VITALS: BP 142/62
--- NOTE | 2021-05-04 11:56 | NUR ---
PT IN BED EATING LUNCH WITH AT BEDSIDE. NO NEEDS AT THIS TIME. CALL LIGHT WITHIN REACH.
[2021-05-04] MEDS ORDERED: VIBRAMYCIN100 M2 PO (13:08)
--- NOTE | 2021-05-04 15:08 | NUR ---
Discharge instructions given. Patient verbalizes understanding of same. Discharged in stable condition via Wheelchair to Home with staff. All belongings sent with pt. Home oxygen connected at 2L, educated on proper use. Pt encouraged to return if symptoms worsen.
--- NOTE | 2021-05-07 10:32 | NUR ---
Pneumonia post discharge follow up call completed today, 05/07/21. Per , pt is doing very well. He has had no fever, chills, or increased SOB.e is using his oxygen less with time and O2 levels are in 90s most of the time. Pt is regaining energy and stamina since discharge also. Follow up appt [facility] PCP is scheduled for . He is taking prescribed medication without difficulty. No needs or concerns expressed by at this time.
== END 2021-05-04 15:08 | disposition home health service (06) ==
LOC: ED 08:50 → MS2 13:24
PROVIDERS: Emergency Medicine; Nurse Practitioner; ADMIT Internal Medicine; ATTEND Internal Medicine
DX: J18.9 Pneumonia, unspecified organism (principal); J43.9 Emphysema, unspecified; N17.9 Acute kidney failure, unspecified; J96.11 Chronic respiratory failure with hypoxia; I10 Essential (primary) hypertension; E11.9 Type 2 diabetes mellitus without complications; I25.10 Atherosclerotic heart disease of native coronary artery without angina pectoris; E03.9 Hypothyroidism, unspecified; K21.9 Gastro-esophageal reflux disease without esophagitis; K50.90 Crohn's disease, unspecified, without complications; Z87.891 Personal history of nicotine dependence; Z20.822 Contact with and (suspected) exposure to COVID-19
CPT/HCPCS: J1650; Q9967

== ENCOUNTER 2022-04-10 07:19 | Observation (INO) | payer OTHER, MEDICARE ==
[2022-04-10] VITALS (30 sets, daily range): BP systolic 89–158; BP diastolic 38–112
[~2022-04-10] VITALS: Ht 170.2 cm; Wt 66.8 kg
[~2022-04-10 07:19] MED LIST changes: +CLARITIN10 M1 PO; +COUGHTAB200 MG PO; +FERROUS SULF325 M2 PO; +MECLIZINE12.5 M1 PO; +PRESERVISION AREDS 2 PO; +VIBRAMYCIN100 M2 PO
[2022-04-10 07:46] LABS: BASO% 0.9 % (0-3); EOS% 5.9 % (0-8); HEMATOCRIT 35.8 % (39.0-50.0); IMMATURE GRANULOCYTES 0.1 % (0.0-5.0); LYMPH% 25.8 % (15-41); MEAN CORPUSCULAR HGB 29.4 pG CALC (26.0-32.0); MEAN CORPUSCULAR HGB CONC 30.7 g/dL CAL (32.0-36.0); MONO% 10.3 % (2-13); NEUT# 5.27 thou/uL (1.82-7.42); RED BLOOD COUNT 3.74 mill/uL (4.70-6.10); RED CELL DISTRI WIDTH 15.3 % (11.5-15.5)
[2022-04-10 07:47] LABS: MEAN CELL VOLUME 95.7 fL CALC (80.0-100.0)
[2022-04-10 07:59] LABS: ALBUMIN 4.2 g/dL (3.2-5.0); ALKALINE PHOSPHATASE 91 u/l (38-126); ANION GAP 11 (6-22 (CALC)); BILIRUBIN, TOTAL 0.2 mg/dL (0.2-1.3); BUN 37 mg/dL (8-23); BUN/CREATININE RATIO 29 (12-20 (CALC)); CARBON DIOXIDE 25 mmol/l (22-30); CHLORIDE 108 mmol/l (95-108); CREATININE 1.3 mg/dL (0.7-1.3); GFR FOR AFR.AMER. > 60 ML/MIN (>=60 (CALC)); GFR OTHER RACES 53 ML/MIN (>=60 (CALC)); LIPASE 269 u/l (23-300); MAGNESIUM 2.3 mg/dL (1.6-2.3); POTASSIUM 4.2 mmol/l (3.5-5.1); SGOT/AST 23 u/l (19-48); SODIUM 140 mmol/l (137-146); TOTAL PROTEIN 7.5 g/dL (6.3-8.2)
[2022-04-10] MEDS ORDERED: TAMSULOSIN HCL0.4 MG PO (14:02)
[2022-04-11] VITALS (7 sets, daily range): BP systolic 112–159; BP diastolic 43–73
[2022-04-11 05:11] LABS: BASO% 0.2 % (0-3); HEMATOCRIT 33.6 % (39.0-50.0); HEMOGLOBIN 10.3 g/dl (14.0-18.0); IMMATURE GRANULOCYTES 0.9 % (0.0-5.0); LYMPH% 14.5 % (15-41); MEAN CELL VOLUME 94.9 fL CALC (80.0-100.0); MEAN CORPUSCULAR HGB 29.1 pG CALC (26.0-32.0); MEAN CORPUSCULAR HGB CONC 30.7 g/dL CAL (32.0-36.0); MONO% 5.6 % (2-13); NEUT# 7.27 thou/uL (1.82-7.42); NEUT% 78.8 % (42-76); RED BLOOD COUNT 3.54 mill/uL (4.70-6.10); RED CELL DISTRI WIDTH 15.4 % (11.5-15.5)
[2022-04-11 05:43] LABS: ALBUMIN 3.5 g/dL (3.2-5.0); CHOLESTEROL HDL RATIO 6.3 (<4.4 (CALC)); CREATININE 1.4 mg/dL (0.7-1.3); MAGNESIUM 2.2 mg/dL (1.6-2.3); POTASSIUM 4.8 mmol/l (3.5-5.1); TOTAL PROTEIN 6.3 g/dL (6.3-8.2)
[2022-04-12] VITALS: BP 151/57
[2022-04-12 04:00] VITALS: BP 151/57
[2022-04-12 05:28] LABS: BASO% 0.3 % (0-3); HEMATOCRIT 33.4 % (39.0-50.0); HEMOGLOBIN 10.5 g/dl (14.0-18.0); IMMATURE GRANULOCYTES 0.3 % (0.0-5.0); LYMPH% 16.3 % (15-41); MEAN CELL VOLUME 94.6 fL CALC (80.0-100.0); MEAN CORPUSCULAR HGB 29.7 pG CALC (26.0-32.0); MEAN CORPUSCULAR HGB CONC 31.4 g/dL CAL (32.0-36.0); MONO% 7.1 % (2-13); NEUT# 7.49 thou/uL (1.82-7.42); RED BLOOD COUNT 3.53 mill/uL (4.70-6.10)
[2022-04-12 05:48] LABS: ALBUMIN 3.6 g/dL (3.2-5.0); ALKALINE PHOSPHATASE 73 u/l (38-126); ANION GAP 10 (6-22 (CALC)); BUN 41 mg/dL (8-23); BUN/CREATININE RATIO 34 (12-20 (CALC)); CARBON DIOXIDE 23 mmol/l (22-30); CHLORIDE 109 mmol/l (95-108); CREATININE 1.2 mg/dL (0.7-1.3); GFR FOR AFR.AMER. > 60 ML/MIN (>=60 (CALC)); GFR OTHER RACES 58 ML/MIN (>=60 (CALC)); MAGNESIUM 2.3 mg/dL (1.6-2.3); POTASSIUM 4.4 mmol/l (3.5-5.1); SGOT/AST 21 u/l (19-48); SODIUM 138 mmol/l (137-146); TOTAL PROTEIN 6.2 g/dL (6.3-8.2)
[2022-04-12 05:54] LABS: BILIRUBIN, TOTAL 0.1 mg/dL (0.2-1.3)
[2022-04-12 06:46] VITALS: BP 142/59
[2022-04-12 10:30] VITALS: BP 151/87
[2022-04-12] MEDS ORDERED: TAMSULOSIN HCL0.4 MG PO (11:49)
[2022-04-12] MEDS ORDERED: ZITHROMAX250 MG PO (11:50)
[2022-04-12] MEDS ORDERED: MEDDOSEPAK PO (12:02)
== END 2022-04-12 14:00 | disposition home or self-care (01) | DRG 193 ==
LOC: ED 07:19 → ED-I 11:14 → ED 11:52 → MS2 11:53
PROVIDERS: Internal Medicine; Nurse Practitioner Family; ADMIT Internal Medicine; ATTEND Internal Medicine
DX: J18.9 Pneumonia, unspecified organism (principal); J96.01 Acute respiratory failure with hypoxia; K50.90 Crohn's disease, unspecified, without complications; I10 Essential (primary) hypertension; E11.9 Type 2 diabetes mellitus without complications; I25.10 Atherosclerotic heart disease of native coronary artery without angina pectoris; E03.9 Hypothyroidism, unspecified; K21.9 Gastro-esophageal reflux disease without esophagitis; F43.20 Adjustment disorder, unspecified; Z87.891 Personal history of nicotine dependence
CPT/HCPCS: J1650

== ENCOUNTER 2022-06-06 17:38 | Emergency (ER) | payer OTHER, MEDICARE ==
[2022-06-06] VITALS (10 sets, daily range): BP systolic 130–181; BP diastolic 75–93
[~2022-06-06] VITALS: Ht 170.2 cm; Wt 65.9 kg
[~2022-06-06 17:38] MED LIST changes: +MEDDOSEPAK PO; +TAMSULOSIN HCL0.4 MG PO; +ZITHROMAX250 MG PO
[2022-06-06 18:10] LABS: BASO% 0.8 % (0-3); HEMOGLOBIN 11.1 g/dl (14.0-18.0); IMMATURE GRANULOCYTES 0.1 % (0.0-5.0); LYMPH% 28.2 % (15-41); MEAN CELL VOLUME 92.7 fL CALC (80.0-100.0); MEAN CORPUSCULAR HGB 27.8 pG CALC (26.0-32.0); MONO% 11.7 % (2-13); NEUT# 4.41 thou/uL (1.82-7.42); NEUT% 53.2 % (42-76); RED BLOOD COUNT 3.99 mill/uL (4.70-6.10); RED CELL DISTRI WIDTH 15.5 % (11.5-15.5)
[2022-06-06 18:24] LABS: ALBUMIN 4.1 g/dL (3.2-5.0); ALKALINE PHOSPHATASE 82 u/l (38-126); ANION GAP 13 (6-22 (CALC)); BUN 25 mg/dL (8-23); BUN/CREATININE RATIO 21 (12-20 (CALC)); CARBON DIOXIDE 24 mmol/l (22-30); CHLORIDE 105 mmol/l (95-108); CREATININE 1.2 mg/dL (0.7-1.3); GFR FOR AFR.AMER. > 60 ML/MIN (>=60 (CALC)); GFR OTHER RACES 58 ML/MIN (>=60 (CALC)); POTASSIUM 4.5 mmol/l (3.5-5.1); SGOT/AST 27 u/l (19-48); SODIUM 138 mmol/l (137-146); TOTAL PROTEIN 7.4 g/dL (6.3-8.2)
[2022-06-06 18:25] LABS: BILIRUBIN, TOTAL 0.2 mg/dL (0.2-1.3)
[2022-06-06] MEDS ORDERED: MEDDOSEPAK PO (21:15)
[2022-06-06] MEDS ORDERED: ZPAK PO (21:15)
== END 2022-06-06 21:48 | disposition home or self-care (01) | DRG 204 ==
LOC: ED 17:38
PROVIDERS: Family Medicine
DX: R06.00 Dyspnea, unspecified (principal); J44.1 Chronic obstructive pulmonary disease with (acute) exacerbation; Z20.822 Contact with and (suspected) exposure to COVID-19; I10 Essential (primary) hypertension; Z79.84 Long term (current) use of oral hypoglycemic drugs; E11.9 Type 2 diabetes mellitus without complications
CPT/HCPCS: Q9967

== ENCOUNTER 2023-03-15 16:18 | Inpatient (IN) | payer OTHER, MEDICARE ==
[~2023-03-15] VITALS: Ht 170.2 cm; Wt 64.0 kg
[2023-03-15] VITALS (19 sets, daily range): BP systolic 125–156; BP diastolic 64–82
[~2023-03-15 16:18] MED LIST changes: +HYDROCORTISONE12 TOP; +ZPAK PO
[2023-03-15 16:45] LABS: BASO% 0.2 % (0-3); EOS% 0.6 % (0-8); HEMATOCRIT 36.6 % (39.0-50.0); HEMOGLOBIN 10.6 g/dl (14.0-18.0); IMMATURE GRANULOCYTES 0.3 % (0.0-5.0); LYMPH% 11.6 % (15-41); MEAN CELL VOLUME 85.7 fL CALC (80.0-100.0); MEAN CORPUSCULAR HGB 24.8 pG CALC (26.0-32.0); MONO% 7.4 % (2-13); NEUT# 13.69 thou/uL (1.82-7.42); NEUT% 79.9 % (42-76); RED BLOOD COUNT 4.27 mill/uL (4.70-6.10); RED CELL DISTRI WIDTH 17.6 % (11.5-15.5)
[2023-03-15 16:58] LABS: ALBUMIN 3.9 g/dL (3.2-5.0); BILIRUBIN, TOTAL 0.4 mg/dL (0.2-1.3); CREATININE 1.4 mg/dL (0.7-1.3); POTASSIUM 4.2 mmol/l (3.5-5.1)
[2023-03-15 17:00] LABS: TOTAL PROTEIN 8.3 g/dL (6.3-8.2)
[2023-03-15] MEDS ORDERED: SULFASALAZIN500 M1 PO (17:14)
[2023-03-15] MEDS ORDERED: CARVEDILOL25 MG PO (17:15)
[2023-03-15] MEDS ORDERED: ASPIRINCHW 81MG PO (17:16)
[2023-03-15] MEDS ORDERED: PROSCAR5 MG PO (17:17)
[2023-03-15] MEDS ORDERED: LEVOTHYROXIN125 MCG PO (17:17)
[2023-03-15] MEDS ORDERED: ADVANCED FIBER COMPL PO (17:18)
[2023-03-15] MEDS ORDERED: PRESERVISION PO (17:18)
[2023-03-15] MEDS ORDERED: TAMSULOSIN0.4 MG PO (17:19)
[2023-03-15] MEDS ORDERED: MECLIZINE12.5 M1 PO (17:19)
[2023-03-15] MEDS ORDERED: AMLOD/BENAZP1 CA5 PO (17:24)
[2023-03-15] MEDS ORDERED: SPIRONO/HCTZ PO (17:26)
[2023-03-16 04:25] VITALS: BP 118/75
[2023-03-16 04:45] VITALS: BP 118/75
[2023-03-16 07:02] LABS: BASO% 0.2 % (0-3); HEMATOCRIT 31.7 % (39.0-50.0); HEMOGLOBIN 9.4 g/dl (14.0-18.0); IMMATURE GRANULOCYTES 0.3 % (0.0-5.0); LYMPH% 15.6 % (15-41); MEAN CELL VOLUME 86.6 fL CALC (80.0-100.0); MEAN CORPUSCULAR HGB 25.7 pG CALC (26.0-32.0); MEAN CORPUSCULAR HGB CONC 29.7 g/dL CAL (32.0-36.0); MONO% 6.7 % (2-13); NEUT# 8.87 thou/uL (1.82-7.42); NEUT% 77.2 % (42-76); RED BLOOD COUNT 3.66 mill/uL (4.70-6.10); RED CELL DISTRI WIDTH 17.8 % (11.5-15.5)
[2023-03-16 07:20] LABS: ALBUMIN 3.3 g/dL (3.2-5.0); ALKALINE PHOSPHATASE 49 u/l (38-126); ANION GAP 14 (6-22 (CALC)); BUN 40 mg/dL (8-23); BUN/CREATININE RATIO 35 (12-20 (CALC)); CARBON DIOXIDE 25 mmol/l (22-30); CHLORIDE 108 mmol/l (95-108); CREATININE 1.1 mg/dL (0.7-1.3); GFR FOR AFR.AMER. > 60 ML/MIN (>=60 (CALC)); GFR OTHER RACES > 60 ML/MIN (>=60 (CALC)); MAGNESIUM 2.2 mg/dL (1.6-2.3); POTASSIUM 4.8 mmol/l (3.5-5.1); SGOT/AST 46 u/l (19-48); SODIUM 142 mmol/l (137-146); TOTAL PROTEIN 7.6 g/dL (6.3-8.2)
[2023-03-16 07:27] LABS: BILIRUBIN, TOTAL 0.7 mg/dL (0.2-1.3)
[2023-03-16 07:33] VITALS: BP 131/76
[2023-03-16 11:22] VITALS: BP 137/66
[2023-03-16 16:27] VITALS: BP 149/81
[2023-03-16 21:07] VITALS: BP 140/67
[2023-03-17 00:30] VITALS: BP 150/64
[2023-03-17 04:40] VITALS: BP 151/65
[2023-03-17 07:17] VITALS: BP 159/77
[2023-03-17 07:30] LABS: BASO% 0.1 % (0-3); EOS% 0.2 % (0-8); HEMATOCRIT 31.8 % (39.0-50.0); HEMOGLOBIN 9.3 g/dl (14.0-18.0); IMMATURE GRANULOCYTES 0.2 % (0.0-5.0); LYMPH% 12.1 % (15-41); MEAN CELL VOLUME 85.7 fL CALC (80.0-100.0); MEAN CORPUSCULAR HGB 25.1 pG CALC (26.0-32.0); MEAN CORPUSCULAR HGB CONC 29.2 g/dL CAL (32.0-36.0); MONO% 5.4 % (2-13); NEUT# 10.13 thou/uL (1.82-7.42); RED BLOOD COUNT 3.71 mill/uL (4.70-6.10); RED CELL DISTRI WIDTH 17.7 % (11.5-15.5)
[2023-03-17 08:28] LABS: ALBUMIN 3.2 g/dL (3.2-5.0); CREATININE 1.4 mg/dL (0.7-1.3); MAGNESIUM 2.1 mg/dL (1.6-2.3); POTASSIUM 4.3 mmol/l (3.5-5.1); TOTAL PROTEIN 6.9 g/dL (6.3-8.2)
[2023-03-17 08:36] LABS: BILIRUBIN, TOTAL 0.2 mg/dL (0.2-1.3)
[2023-03-17 10:30] VITALS: BP 155/71
[2023-03-17] MEDS ORDERED: MEDDOSEPAK PO (12:30)
[2023-03-17] MEDS ORDERED: TAMIFLU30 MG PO (12:31)
[2023-03-17] MEDS ORDERED: AMOX/K CLAV875 M1 PO (12:31)
[2023-03-17] MEDS ORDERED: AZITHROMYCIN500 MG PO (12:31)
[2023-03-17 15:10] VITALS: BP 164/74
[2023-03-17 17:54] VITALS: BP 142/68
== END 2023-03-17 18:00 | disposition home health service (06) | DRG 193 ==
LOC: ED 16:18 → ED-I 16:48 → ED 18:51 → MS2 18:52
PROVIDERS: Family Medicine; Nurse Practitioner Family; ADMIT Student in an Organized Health Care Education/Training Program; ATTEND Student in an Organized Health Care Education/Training Program
DX: J10.00 Influenza due to other identified influenza virus with unspecified type of pneumonia (principal); J96.21 Acute and chronic respiratory failure with hypoxia; J44.0 Chronic obstructive pulmonary disease with (acute) lower respiratory infection; K50.90 Crohn's disease, unspecified, without complications; I10 Essential (primary) hypertension; E11.9 Type 2 diabetes mellitus without complications; I25.10 Atherosclerotic heart disease of native coronary artery without angina pectoris; H91.90 Unspecified hearing loss, unspecified ear; E03.9 Hypothyroidism, unspecified; K21.9 Gastro-esophageal reflux disease without esophagitis; Z99.81 Dependence on supplemental oxygen; Z87.891 Personal history of nicotine dependence; Z20.822 Contact with and (suspected) exposure to COVID-19
CPT/HCPCS: J1650

== ENCOUNTER 2024-05-16 11:36 | Observation (INO) | payer OTHER, MEDICARE ==
[2024-05-16] VITALS (34 sets, daily range): BP systolic 104–166; BP diastolic 47–80
[~2024-05-16] VITALS: Ht 170.2 cm; Wt 54.0 kg
[~2024-05-16 11:36] MED LIST changes: +ADVANCED FIBER COMPL PO; +AMOX/K CLAV875 M1 PO; +ASPIRINCHW 81MG PO; +AZITHROMYCIN500 MG PO; +PREDNISONE20 MG PO; +SPIRONO/HCTZ PO; +TAMIFLU30 MG PO; +TAMSULOSIN0.4 MG PO
[2024-05-16] MEDS ORDERED: ASPIRIN 81 MG/TAB PO ONE (11:50)
[2024-05-16 12:07] LABS: BASO% 0.5 % (0-3); IMMATURE GRANULOCYTES 0.2 % (0.0-5.0); LYMPH% 32.2 % (15-41); MEAN CORPUSCULAR HGB 22.9 pG CALC (26.0-32.0); MONO% 9.2 % (2-13); NEUT# 2.98 thou/uL (1.82-7.42); NEUT% 53.9 % (42-76); RED BLOOD COUNT 3.41 mill/uL (4.70-6.10); RED CELL DISTRI WIDTH 19.3 % (11.5-15.5)
[2024-05-16 12:09] LABS: HEMATOCRIT 27.9 % (39.0-50.0); HEMOGLOBIN 7.8 g/dl (14.0-18.0); MEAN CELL VOLUME 81.8 fL CALC (80.0-100.0)
[2024-05-16 12:19] LABS: ALBUMIN 3.2 g/dL (3.2-5.0); ALKALINE PHOSPHATASE 76 u/l (38-126); ANION GAP 12 (6-22 (CALC)); BILIRUBIN, TOTAL 0.3 mg/dL (0.2-1.3); BUN 40 mg/dL (8-23); BUN/CREATININE RATIO 31 (12-20 (CALC)); CARBON DIOXIDE 23 mmol/l (22-30); CHLORIDE 106 mmol/l (95-108); CREATININE 1.3 mg/dL (0.7-1.3); ESTIMATED GFR 55 ML/MIN (>=90 (CALC)); POTASSIUM 4.2 mmol/l (3.5-5.1); SGOT/AST 23 u/l (19-48); SODIUM 137 mmol/l (137-146); TOTAL PROTEIN 6.8 g/dL (6.3-8.2)
[2024-05-16] MEDS ORDERED: ACETAMINOPHEN 325 MG/TAB PO PRN (16:15)
[2024-05-16] MEDS ORDERED: MAGNESIUM HYDROXIDE 30 ML UDC PO PRN (16:15)
[2024-05-16] MEDS ORDERED: CARVEDILOL 25 MG/TAB PO SCH ×2 (16:15→22:00)
[2024-05-16] MEDS ORDERED: Zaleplon 5 MG/CAP PO PRN (16:15)
[2024-05-16] MEDS ORDERED: GALANTAMINE8 MG PO (19:08)
[2024-05-16] MEDS ORDERED: SODIUM CHLORIDE 0.9% 250 ML IV ONE (19:20)
[2024-05-17 04:22] VITALS: BP 129/51
[2024-05-17] MEDS ORDERED: LEVOTHYROXINE SODIUM 125 MCG/TAB PO SCH (06:00)
[2024-05-17 06:10] LABS: CHOLESTEROL HDL RATIO 6.1 (<4.4 (CALC)); MAGNESIUM 2.2 mg/dL (1.6-2.3)
[2024-05-17 06:39] LABS: HEMATOCRIT 33.2 % (39.0-50.0); HEMOGLOBIN 9.6 g/dl (14.0-18.0); MEAN CORPUSCULAR HGB 23.1 pG CALC (26.0-32.0); MEAN CORPUSCULAR HGB CONC 28.9 g/dL CAL (32.0-36.0); RED BLOOD COUNT 4.15 mill/uL (4.70-6.10); RED CELL DISTRI WIDTH 18.5 % (11.5-15.5)
[2024-05-17 07:00] VITALS: BP 148/55
[2024-05-17] MEDS ORDERED: FINASTERIDE 5 MG/TAB PO SCH (09:00)
[2024-05-17] MEDS ORDERED: amLODIPine BESYLATE 5 MG/TAB PO SCH (09:00)
[2024-05-17 09:50] VITALS: BP 134/51
[2024-05-17 11:00] VITALS: BP 134/51
== END 2024-05-17 11:37 | disposition home or self-care (01) | DRG 313 ==
LOC: ED 11:36 → MS2 17:43
PROVIDERS: Family Medicine; ADMIT Internal Medicine; ATTEND Internal Medicine
PROC: 30233N1 Transfusion of Nonautologous Red Blood Cells into Peripheral Vein, Percutaneous Approach (ICD-10-PCS; principal; 2024-05-16)
DX: R07.89 Other chest pain (principal); K50.90 Crohn's disease, unspecified, without complications; D64.9 Anemia, unspecified; I12.9 Hypertensive chronic kidney disease with stage 1 through stage 4 chronic kidney disease, or unspecified chronic kidney disease; E11.22 Type 2 diabetes mellitus with diabetic chronic kidney disease; N18.9 Chronic kidney disease, unspecified; I25.10 Atherosclerotic heart disease of native coronary artery without angina pectoris; J44.9 Chronic obstructive pulmonary disease, unspecified; F03.90 Unspecified dementia, unspecified severity, without behavioral disturbance, psychotic disturbance, mood disturbance, and anxiety; E03.9 Hypothyroidism, unspecified; I45.10 Unspecified right bundle-branch block; H91.90 Unspecified hearing loss, unspecified ear; Z87.891 Personal history of nicotine dependence
CPT/HCPCS: P9016; Q9967

== ENCOUNTER 2024-05-23 13:06 | Emergency (ER) | payer OTHER, MEDICARE ==
[2024-05-23] VITALS (17 sets, daily range): BP systolic 105–130; BP diastolic 47–96
[~2024-05-23] VITALS: Ht 170.2 cm; Wt 51.0 kg
[~2024-05-23 13:06] MED LIST changes: +GALANTAMINE8 MG PO
[2024-05-23] MEDS ORDERED: HYDROcodone/Acetaminophen 1 COMBO TAB PO ONE (14:00)
== END 2024-05-23 17:59 | DRG 536 ==
LOC: ED 13:06
DX: S72.145A Nondisplaced intertrochanteric fracture of left femur, initial encounter for closed fracture (principal); E11.9 Type 2 diabetes mellitus without complications; I10 Essential (primary) hypertension; F03.90 Unspecified dementia, unspecified severity, without behavioral disturbance, psychotic disturbance, mood disturbance, and anxiety; I25.10 Atherosclerotic heart disease of native coronary artery without angina pectoris; J44.9 Chronic obstructive pulmonary disease, unspecified; H91.90 Unspecified hearing loss, unspecified ear; W19.XXXA Unspecified fall, initial encounter; Y92.009 Unspecified place in unspecified non-institutional (private) residence as the place of occurrence of the external cause